=== PATIENT | female | born 1975 | race Hispanic/Latino ===

== ENCOUNTER 2020-07-10 04:14 | Emergency (ER) | payer OTHER ==
[2020-07-10 05:02] LABS: Bilirubin Negative (Negative); Blood, Urine Large (Negative); Clarity Slightly Cloudy (Clear); Glucose, Urine (Dipstick) 500 mg/dL (Negative); Ketone, Urine 80 mg/dL (Negative); Leukocyte Trace (Negative); Nitrite Positive (Negative); Protein, Urine (Dipstick) > or equal to 300 mg/dL (Neg-Trace); pH, Urine 5.5 (5.0-9.0)
[2020-07-10 05:09] LABS: #Lymphocytes 1.2 thou/uL (1.20-3.40); #Monocytes 0.4 thou/uL (0.11-0.59); %Basophils 0.4 % (0.0-1.0); %Eosinophils 0.3 % (0.0-10.0); %Lymphocytes 10.3 % (21.0-51.0); %Monocytes 3.1 % (0.0-10.0); %Neutrophils 85.9 % (42.0-75.0); Hemoglobin 7.4 g/dL (12.0-16.0); Hypochromia MODERATE=16-30 cells (100X) (0-5/hpf); MDiff Complete? YES; Mean Corpuscular HGB CONC 27.5 g/dL (32.0-36.0); Mean Corpuscular Volume 62.1 fL (78.0-98.0); Mean Platelet Volume 7.8 fL (7.4-10.4); Microcytosis MARKED = >30 cells (100X) (0-5/hpf); Ovalocytes MODERATE= 6-15 cells (100X) (0-1/hpf); Platelet Count 405 thou/uL (130-400); Platelet Morphology Comment Appears Adequate; RBC Distribution Width 16.7 % (11.5-14.5); Red Blood Cell (RBC) Count 4.32 mill/uL (4.20-5.40); White Blood Cell (WBC) Count 11.6 thou/uL (4.8-10.8)
[2020-07-10 05:10] LABS: ALT (SGPT) 11 U/L (8-55); AST (SGOT) 9 U/L (5-34); Albumin 4.1 g/dL (3.5-5.0); Alkaline Phosphatase 101 U/L (40-110); Anion Gap 16 mmol/L (10-20); BUN (Urea Nitrogen) 12 mg/dL (7.0-18.7); Bilirubin, Total 0.5 mg/dL (0.2-1.2); Calc. Creatinine Clearance 0 mL/min (70-130); Calcium 8.8 mg/dL (7.8-10.44); Carbon Dioxide 19 mmol/L (22-29); Chloride 101 mmol/L (98-107); Estimated GFR-MDRD 83; Globulin 3.7 g/dL (2.4-3.5); Glucose 314 mg/dL (70-105); Potassium 3.3 mmol/L (3.5-5.1); Protein, Total 7.8 g/dL (6.0-8.3); Sodium 133 mmol/L (136-145)
[2020-07-10 05:13] LABS: Specific Gravity, Urine 1.028 (1.002-1.036)
[2020-07-10] MEDS ORDERED: Sodium Chloride 0.9% 1,000 ML ONE (05:14)
[2020-07-10 05:20] LABS: RBC/HPF Greater than 50 HPF (0-3); WBC/HPF 21-50 HPF (0-3)
[2020-07-10 05:21] LABS: Bacteria/HPF 4+ HPF (None Seen); Mucous/LPF 2+ LPF (<2+)
[2020-07-10] MEDS ORDERED: cefTRIAXone\\ROCEPHIN 2 GM VIAL ONE (05:41)
[2020-07-10] MEDS ORDERED: Sodium Chloride 0.9% 100 ML ONE (05:41)
[2020-07-10] MEDS ORDERED: Insulin Regular 300 UNITS/3 ML VIAL ONE (05:49)
--- NOTE | 2020-07-10 07:30 | CT ---
CT OF THE ABDOMEN AND PELVIS WITHOUT CONTRAST: Date: 07/10/2020 COMPARISON: None. HISTORY: Left flank pain and tenderness. TECHNIQUE: Multiple contiguous axial images were obtained in a CT of the abdomen and pelvis without contrast. Sagittal and coronal reformats were performed. FINDINGS: There is a calcified gallstone in the gallbladder. Multiple calcified granulomas are seen in the sple en. There is slight enlargement of the left ureter without significant caliceal dilatation and strand ing changes surround the ureter. No calcifications are seen within either ureter or either kidney. No calcification is seen within the urinary bladder. The liver, adrenal glands, and pancreas are unremarkable, although evaluation is limited without IV c ontrast. The large and small bowel are unremarkable. The appendix is normal. The reproductive organs are unremarkable. A tampon is seen in the vagina. No abdominal or pelvic lymphadenopathy seen. The osseous structures, abdominal wall soft tissues, and visualized inferior thorax are unremarkable. IMPRESSION: 1. There is slight enlargement of the left ureter which may be secondary to a recently passed stone. 2. Cholelithiasis. POS: [facility]
== END 2020-07-10 06:48 | disposition short-term general hospital (02) ==
LOC: NAV ERS 04:14
DX: N20.0 Calculus of kidney (principal); D50.9 Iron deficiency anemia, unspecified; E11.9 Type 2 diabetes mellitus without complications; I10 Essential (primary) hypertension
CPT/HCPCS: 36415; 36416; 74176; 80053; 81003; 81015; 82274; 85025; 87077; 87086; 87186; 96365; J0696; J1815; J3490; J7050